=== PATIENT | male | born 1930 | race Caucasian/White ===

== ENCOUNTER 2020-09-30 12:03 | Inpatient (IN) | payer MEDICARE ==
[~2020-09-30] VITALS: Ht 180.3 cm; Wt 81.6 kg
[2020-09-30 13:03] LABS: HEMOGLOBIN 15.1 gm/dl (14.0-17.5); RED BLOOD COUNT 4.62 M/UL (4.20-5.50); WHITE BLOOD COUNT 20.7 K/UL (4.5-11.0)
[2020-09-30 13:48] LABS: BUN/CREATININE RATIO 17 (0-10)
[2020-09-30] MEDS ORDERED: ZAROXOLYN/DIUL2.5 MG PO (14:52)
[2020-09-30] MEDS ORDERED: BENAZEPRIL HCL40 MG PO (14:53)
[2020-09-30] MEDS ORDERED: KLOR-CON M1010 MEQ PO (14:53)
[2020-09-30] MEDS ORDERED: LIPITOR20 MG PO (14:53)
[2020-09-30] MEDS ORDERED: LEXAPRO5 MG PO (14:53)
[2020-09-30] MEDS ORDERED: ASPIRIN81 MG PO (14:54)
[2020-09-30] MEDS ORDERED: COLCHICINE0.6 M1 PO (15:16)
[2020-09-30] MEDS ORDERED: LASIX40 MG PO (15:16)
[2020-10-01 02:52] LABS: HEMOGLOBIN 12.9 gm/dl (14.0-17.5); RED BLOOD COUNT 3.96 M/UL (4.20-5.50); WHITE BLOOD COUNT 29.1 K/UL (4.5-11.0)
[2020-10-01 03:25] LABS: ACINETOBACTER BAUMANNII Not Detected (Negative); CANDIDA ALBICANS Not Detected (Negative); CANDIDA KRUSEI Not Detected (Negative); CANDIDA TROPICALIS Not Detected (Negative); ENTEROCOCCUS Not Detected (Negative); ESCHERICHIA COLI Not Detected (Negative); HAEMOPHILUS INFLUENZAE Not Detected (Negative); KLEBSIELLA OXYTOCA Not Detected (Negative); KPC-CARBAPENEM-RESISTANCE GENE Not Detected (Negative); PROTEUS Not Detected (Negative); PSEUDOMONAS AERUGINOSA Not Detected (Negative); SERRATIA MARCESANS Not Detected (Negative); STAPHYLOCOCCUS Not Detected (Negative); STAPHYLOCOCCUS AUREUS Not Detected (Negative); STREP AGALACTIAE (GROUP B) Not Detected (Negative); STREP PYOGENES (GROUP A) Not Detected (Negative); STREPTOCOCCUS Not Detected (Negative); mecA (METHICILLIN RESIST GENE Not Detected (Negative); vanA/B (VANCOMYCIN RESIST GENE Not Detected (Negative)
[2020-10-01 03:48] LABS: BUN/CREATININE RATIO 17 (0-10)
[2020-10-01 04:46] LABS: KLEBSIELLA PNEUMONIAE DETECTED (Negative)
[2020-10-02 02:15] LABS: HEMOGLOBIN 11.9 gm/dl (14.0-17.5); RED BLOOD COUNT 3.64 M/UL (4.20-5.50); WHITE BLOOD COUNT 23.2 K/UL (4.5-11.0)
[2020-10-03 06:04] LABS: RED BLOOD COUNT 3.65 M/UL (4.20-5.50); WHITE BLOOD COUNT 18.7 K/UL (4.5-11.0)
[2020-10-03 14:45] LABS: BORDETELLA PARAPERTUSSIS Not Detected (Not Detectd); BORDETELLA PERTUSSIS Not Detected (Not Detectd); CHLAMYDIA PNEUMONIAE Not Detected (Not Detectd); CORONAVIRUS HKU1 Not Detected (Not Detectd); CORONAVIRUS NL63 Not Detected (Not Detectd); CORONAVIRUS OC43 Not Detected (Not Detectd); CORONOAVIRUS 229E Not Detected (Not Detectd); HUMAN METAPNEUMOVIRUS Not Detected (Not Detectd); HUMAN RHINOVIRUS/ENTEROVIRUS Not Detected (Not Detectd); INFLUENZA A Not Detected (Not Detectd); INFLUENZA B Not Detected (Not Detectd); MYCOPLASMA PNEUMONIAE Not Detected (Not Detectd); PARAINFLUENZA VIRUS 1 Not Detected (Not Detectd); PARAINFLUENZA VIRUS 2 Not Detected (Not Detectd); PARAINFLUENZA VIRUS 3 Not Detected (Not Detectd); PARAINFLUENZA VIRUS 4 Not Detected (Not Detectd); RESPIRATORY SYNCYTIAL VIRUS Not Detected (Not Detectd)
[2020-10-03 16:05] LABS: SARS-CoV-2 NOT DETECTED (Not Detectd)
[2020-10-04 02:25] LABS: HEMOGLOBIN 11.6 gm/dl (14.0-17.5); RED BLOOD COUNT 3.61 M/UL (4.20-5.50)
[2020-10-04 02:26] LABS: WHITE BLOOD COUNT 11.5 K/UL (4.5-11.0)
[2020-10-05 04:40] LABS: HEMOGLOBIN 12.9 gm/dl (14.0-17.5); WHITE BLOOD COUNT 8.8 K/UL (4.5-11.0)
[2020-10-05 04:43] LABS: RED BLOOD COUNT 4.02 M/UL (4.20-5.50)
[2020-10-06 05:18] LABS: HEMOGLOBIN 12.1 gm/dl (14.0-17.5); RED BLOOD COUNT 3.78 M/UL (4.20-5.50); WHITE BLOOD COUNT 9.4 K/UL (4.5-11.0)
[2020-10-06 05:20] LABS: BUN/CREATININE RATIO 28 (0-10)
[2020-10-06 12:12] LABS: ORGANISM ID Not indicated. (.); SPECIMEN SOURCE Urine (.); STREPTOCOCCUS PNEUMONIAE AG Negative (Negative)
[2020-10-07 03:52] LABS: HEMOGLOBIN 12.3 gm/dl (14.0-17.5); RED BLOOD COUNT 3.81 M/UL (4.20-5.50); WHITE BLOOD COUNT 11.2 K/UL (4.5-11.0)
[2020-10-07 04:26] LABS: BUN/CREATININE RATIO 24 (0-10)
[2020-10-08 04:28] LABS: BUN/CREATININE RATIO 21 (0-10)
--- NOTE | 2020-10-10 11:30 | NUR ---
Tele called stating patient holly [id number]. [address] Dr[address] Higuera at this time. New orders discontinue tele at this time.
[2020-10-10] MEDS ORDERED: AUGMENTIN 875-1 EACH PO (14:35)
[2020-10-10] MEDS ORDERED: LOPRESSOR 25 MG25 MG PO (14:35)
[2020-10-12 04:07] LABS: RED BLOOD COUNT 3.73 M/UL (4.20-5.50); WHITE BLOOD COUNT 7.6 K/UL (4.5-11.0)
[2020-10-12 04:42] LABS: BUN/CREATININE RATIO 18 (0-10)
[2020-10-13] MEDS ORDERED: KLOR-CON M1010 MEQ PO (10:58)
[2020-10-13] MEDS ORDERED: ZAROXOLYN/DIUL2.5 MG PO (10:58)
[2020-10-13] MEDS ORDERED: COLCHICINE0.6 M1 PO (10:58)
== END 2020-10-13 15:29 | DRG 871 ==
LOC: ER1 12:03 → PROG CARE 14:31 → CDU 14:31 → M/S 14:31 → PROG CARE 16:09 → M/S 10-06 01:05
PROVIDERS: Emergency Medicine; Internal Medicine; Physician Assistant Medical; ADMIT Internal Medicine
DX: A41.59 Other Gram-negative sepsis (principal); R65.21 Severe sepsis with septic shock; J69.0 Pneumonitis due to inhalation of food and vomit; I50.23 Acute on chronic systolic (congestive) heart failure; Z20.822 Contact with and (suspected) exposure to COVID-19; I21.A1 Myocardial infarction type 2; J18.9 Pneumonia, unspecified organism; N39.0 Urinary tract infection, site not specified; N17.9 Acute kidney failure, unspecified; E87.2 Acidosis; M62.82 Rhabdomyolysis; B96.1 Klebsiella pneumoniae [K. pneumoniae] as the cause of diseases classified elsewhere; I11.0 Hypertensive heart disease with heart failure; R74.01 Elevation of levels of liver transaminase levels; I65.29 Occlusion and stenosis of unspecified carotid artery; N40.0 Benign prostatic hyperplasia without lower urinary tract symptoms; R53.1 Weakness; I25.10 Atherosclerotic heart disease of native coronary artery without angina pectoris; I44.7 Left bundle-branch block, unspecified; D72.829 Elevated white blood cell count, unspecified; R73.9 Hyperglycemia, unspecified; E78.5 Hyperlipidemia, unspecified; Z96.652 Presence of left artificial knee joint; D69.6 Thrombocytopenia, unspecified; Z95.1 Presence of aortocoronary bypass graft; Z82.49 Family history of ischemic heart disease and other diseases of the circulatory system; Z83.3 Family history of diabetes mellitus
CPT/HCPCS: ECHO; 36415; 36600; 51702; 70450; 71045; 71046; 71250; 80048; 80053; 80076; 80202; 81001; 82550; 82553; 82803; 83036; 83605; 83690; 83735; 83874; 83880; 84484; 85025; 85027; 85379; 85610; 85730; 86140; 87040; 87077; 87081; 87086; 87150; 87186; 87278; 87633; 87899; 92610; 93005; 93306; 93970; 96374; 97110; 97110-GP-CQ; 97116-GP-CQ; 97163; 97166; 97530; 97530-GP-CQ; 97535; 99285; C9113; J0696; J1644; J2185; J2543; J3370; J3475; J7030; J7070; Q9967; U0002